=== PATIENT | male | born 1985 | race African-American/Black ===

== ENCOUNTER 2018-03-30 11:26 | Emergency (ER) | payer OTHER ==
[2018-03-30 11:39] VITALS: BP 142/88; PULSE 80; TEMP 97.9; BMI 26.6
[2018-03-30] MEDS ORDERED: DIPHTH,PERTUSS(ACELL),TET VAC 0.5 ML VIAL IM ONE (12:02)
--- NOTE | 2018-03-30 12:07 | PDOC ---
History of Present Illness - General Chief Complaint: Bite Stated Complaint: DOG BITE RIGHT THIGH Time Seen by Provider: 03/30/18 11:46 History Source: Patient Exam Limitations: No Limitations - History of Present Illness Initial Comments: 03/30/18 12:03 33y M no pmhx presents s/p dogbite. 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 no other injries. dneies active bleeding, numbness/ tingling/weakness. no prior hx of dog bites. last tetanus +10 yrs ago the dog rabies vaccinatoins up to date (last in 2015) robert, [employer] operator lion pereira Past History - Past Medical History Allergies/Adverse Reactions: Allergies Allergy/AdvReac Type Severity Reaction Status Date / Time No Known Allergies Allergy Unverified 03/30/18 12:14 Home Medications: Ambulatory Orders Amox-Tr/K Cl [Augmentin - 875Mg Tablet] 1 tab PO BID #10 tablet 03/30/18 COPD: No Other medical history: DENIES - Immunization History Immunization Up to Date: No - Suicide/Smoking/Psychosocial Hx Smoking History: Never smoked Information on smoking cessation initiated: No Hx Alcohol Use: Yes (SOCIAL) Drug/Substance Use Hx: No Substance Use Type: Alcohol Review of Systems - Review of Systems Able to Perform ROS?: Yes Comments:: 03/30/18 12:04 Constitutional - no reported Fever, Chills, skin - +bite wound no reported bruising, erythema, rash neurological: no reported numbness, focal weakness, tingling, hematologic: no reported easy bruising, easy bleeding *Physical Exam - Vital Signs Last Vital Signs Temp Pulse Resp BP Pulse Ox 97.9 F 80 16 142/88 100 03/30/18 11:27 03/30/18 11:27 03/30/18 11:27 03/30/18 11:27 03/30/18 11:27 - Physical Exam Comments: 03/30/18 12:05 GENERAL: The patient is awake, alert, and fully oriented, Nontoxic - in no acute distress. EXTREMITIES: Normal range of motion, no edema. see skin exam SKIN: cirucular puncture wounds/abrasions c/w bite no flctuance, no active bleeding, no palpable fbs Moderate Sedation - Procedure Monitoring Vital Signs: Vital Signs Temp Pulse Resp BP Pulse Ox 97.9 F 80 16 142/88 100 03/30/18 11:27 03/30/18 11:27 03/30/18 11:27 03/30/18 11:27 03/30/18 11:27 Procedures - Consent Consent obtained: Verbal - Laceration/Wound Repair Left Lateral Thigh Wound Length: 2.6 to 5.0 cm Wound Explored: clean, no foreign body present Wound's Depth, Shape: superficial, contused tissue Irrigated w/ Saline: Yes Wound Debrided: minimal Progress: 03/30/18 12:07 wound care provided, no sutures or closure due to being dog bite/puncture wound ED Treatment Course - RADIOLOGY Radiology Studies Ordered: Category Date Time Status FEMUR-RIGHT [RAD] Stat Radiology 03/30/18 12:02 Ordered Medical Decision Making - Medical Decision Making 03/30/18 12:06 dog bite will update tetanus will give rx po abx area irrigated with 1L NS xray to r/o fb/retained teeth 03/30/18 12:31 No fb on hip xray will dc with pmd I discussed the physical exam findings, ancillary test results and final diagnoses with the patient. I answered all of the patient's questions. The patient was satisfied with the care received and felt comfortable with the discharge plan and treatment plan. The patient will call their primary care physician within 24 hours to arrange follow-up and will return to the Emergency Department with any new, persistent or worsening symptoms. *DC/Admit/Observation/Transfer Diagnosis at time of Disposition: Dog bite of thigh without complication Qualifiers: Encounter type: initial encounter Laterality: left Qualified Code(s): S71.152A - Open bite, left thigh, initial encounter - Discharge Dispostion Disposition: HOME Condition at time of disposition: Improved Decision to Admit order: No - Prescriptions Prescriptions: Amox-Tr/K Cl [Augmentin - 875Mg Tablet] 1 tab PO BID #10 tablet - Referrals - Patient Instructions Printed Discharge Instructions: How to Care for a Domestic Animal Bite, DI for Animal Bites Additional Instructions: Keep the area clean, apply bacitracin to the area twice daily. Take the antibiotics until the course is complete. You received a tetanus shot, it is good for 10 years. If you have any redness/swelling, increasing pain, discharge or bleeding, come back for further evaluation. Otherwise follow up with your primary care doctor in 3-4 days for reevaluation. Print Language: SPANISH - Post Discharge Activity Forms/Work/School Notes: Back to Work
[2018-03-30] MEDS ORDERED: DIPHTH,PERTUSS(ACELL),TET 0.5 ML DISP.SYRIN IM ONE (12:16)
== END 2018-03-30 13:03 | disposition home or self-care (01) ==
LOC: FER 11:26
PROC: 3E0234Z Introduction of Serum, Toxoid and Vaccine into Muscle, Percutaneous Approach (ICD-10-PCS; principal; 2018-03-30)
DX: S71.151A Open bite, right thigh, initial encounter (principal); W54.0XXA Bitten by dog, initial encounter; Y99.0 Civilian activity done for income or pay; Y93.89 Activity, other specified; Y92.9 Unspecified place or not applicable
CPT/HCPCS: 73502-TC-RT; 90715; 99282-25